=== PATIENT | male | born 1950 | race Caucasian/White ===

== ENCOUNTER → 2017-12-01 | Outpatient (CLI) | payer OTHER, MEDICARE ==
[~2017-12-01] VITALS: Ht 190.5 cm; Wt 90.6 kg
[2017-12-01 16:23] VITALS: BP 126/76; PULSE 73; Ht 190.5 cm; Wt 90.6 kg
== END | disposition home or self-care (01) ==
LOC: C.NEUR 13:00
PROVIDERS: ATTEND Internal Medicine Pulmonary Disease
DX: R06.83 Snoring (principal); R53.83 Other fatigue; G47.30 Sleep apnea, unspecified; J34.2 Deviated nasal septum; G25.81 Restless legs syndrome

== ENCOUNTER → 2017-12-30 | Outpatient (CLI) | payer OTHER, MEDICARE ==
--- NOTE | 2018-01-04 08:01 | POLYSOMNOGRAPH REPORT ---
CLINICAL DATA: A 67-year-old male with BMI of 25, referred by myself and his primary care physician for evaluation of fatigue, loud snoring with witnessed apneic episodes and history of RLS. On the evening of 12/31/2017, a home sleep apnea test was performed using a Fusion Dynamic type 3 monitor. The patient refused an in-lab sleep study. RECORDING RESULTS: Total recording time was 9.3 hours. Patient estimated sleep time and patient monitoring time was 7.1 hours. RESPIRATORY DATA: There was no evidence of significant sleep apnea seen. The IVANIA was 1.4. There was 1 mixed, 1 obstructive, and 3 central apneic episodes. There were 5 hypopneic episodes. The longest respiratory event was 29 seconds. OXIMETRY DATA: Oxygen luis daniel was 86%. Mean saturation was 93%. Time below 89% was 28 minutes. HEART RATE DATA: Heart rates ranged from 45-53 beats per minute. SNORING DATA: Snoring was recorded intermittently throughout the night. IMPRESSION: No evidence of clinically significant sleep apnea/hypopnea was seen on this sleep study. There was mild nocturnal hypoxemia. RECOMMENDATIONS: The patient should continue to practice good sleep hygiene. If PLMD is suspected or if it is felt clinically that this is not an accurate study, an in-lab sleep study would be needed. FUENTES
== END | disposition home or self-care (01) ==
LOC: C.NEUR 10:20
PROVIDERS: ATTEND Internal Medicine Pulmonary Disease
DX: G47.30 Sleep apnea, unspecified (principal); R53.83 Other fatigue; R06.83 Snoring; R06.81 Apnea, not elsewhere classified; J34.2 Deviated nasal septum; G25.81 Restless legs syndrome; Z88.5 Allergy status to narcotic agent

== ENCOUNTER → 2018-01-05 | Outpatient (CLI) | payer OTHER, MEDICARE ==
[~2018-01-05] VITALS: Ht 190.5 cm; Wt 87.3 kg
[2018-01-05 16:00] VITALS: BP 131/80; PULSE 54; Ht 190.5 cm; Wt 87.3 kg
== END | disposition home or self-care (01) ==
LOC: C.NEUR 15:05
PROVIDERS: ATTEND Physician Assistant Medical
DX: G25.81 Restless legs syndrome (principal); R53.83 Other fatigue; F32.9 Major depressive disorder, single episode, unspecified; R00.1 Bradycardia, unspecified